=== PATIENT | male | born 1980 | race Two or more races ===

== ENCOUNTER 2017-12-16 22:55 | Emergency (ER) | payer OTHER ==
[~2017-12-16] VITALS: Ht 180.3 cm; Wt 122.5 kg
[2017-12-17] MEDS ORDERED: HYDROcodone-ACET 10/325MG TAB PO ONE ×2 (01:15→07:45)
[2017-12-17] MEDS ORDERED: PROMETHAZINE HCL 25 MG/ML 1ML IV ONE ×2 (09:00→12:30)
[2017-12-17] MEDS ORDERED: MORPHINE SULFATE 4 MG/ML SYR/VIAL IV ONE ×2 (09:00→12:30)
[2017-12-17 10:36] LABS: Albumin 1.7 g/dL (3.4-5.0); BUN/Creatinine Ratio 8.8; Bilirubin, Total 0.2 mg/dL (0.2-1.0); Calcium 6.3 mg/dL (8.5-10.1); Magnesium 1.7 mg/dL (1.6-2.6); Potassium 4.3 mmol/L (3.5-5.1); Total Protein 6.3 g/dL (6.4-8.2)
[2017-12-17] MEDS ORDERED: IODIXANOL 320MG/ML 100ML BTL IV ONE (10:49)
[2017-12-17 10:51] LABS: Basophils # (auto) 0.1 uL; Basophils % (auto) 0.6 % (0.0-2.0); Eosinophils # (auto) 0.1 uL; Hemoglobin 7.2 g/dL (13.5-17.5); Monocytes # (auto) 0.7 uL
[2017-12-17 10:53] LABS: Eosinophils % (auto) 0.6 % (0.0-7.0); Hematocrit 21.8 % (41.0-53.0); Lymphocytes # (auto) 1.6 uL; Lymphocytes % (auto) 14.8 % (10.0-50.0); Mean Corpuscular Hgb Conc. 32.8 g/dL (32.0-36.0); Mean Corpuscular Volume 82.4 fL (80.0-100.0); Monocytes % (auto) 6.8 % (0.0-12.0); Neutrophils # (auto) 8.4 uL; Neutrophils % (auto) 77.2 % (37.0-80.0); Platelet Count (auto) 222 10^3/uL (140-450); Red Blood Cells 2.65 10^6/uL (4.5-5.90); Red Cell Distribution Width 14.9 % (11.8-14.3); White Blood Cell 10.9 10^3/uL (4.4-10.8)
[2017-12-17] MEDS ORDERED: TETANUS-DIPTH-ACEL PERTUSSIS 0.5ML SYRG IM ONE (12:30)
[2017-12-17 14:17] VITALS: BP 118/67
== END 2017-12-17 14:30 | disposition short-term general hospital (02) ==
LOC: EDBD 22:55 → ER 22:55
DX: S22.43XA Multiple fractures of ribs, bilateral, initial encounter for closed fracture (principal); S00.03XA Contusion of scalp, initial encounter; S20.212A Contusion of left front wall of thorax, initial encounter; S39.81XA Other specified injuries of abdomen, initial encounter; S30.1XXA Contusion of abdominal wall, initial encounter; S70.02XA Contusion of left hip, initial encounter; E66.01 Morbid (severe) obesity due to excess calories; K85.90 Acute pancreatitis without necrosis or infection, unspecified; E11.65 Type 2 diabetes mellitus with hyperglycemia; D64.9 Anemia, unspecified; K80.20 Calculus of gallbladder without cholecystitis without obstruction; Z68.37 Body mass index [BMI] 37.0-37.9, adult; V43.52XA Car driver injured in collision with other type car in traffic accident, initial encounter; Y93.89 Activity, other specified; Y99.8 Other external cause status; Y92.410 Unspecified street and highway as the place of occurrence of the external cause
CPT/HCPCS: 36415; 71045; 71250; 72125; 73502; 73560; 74176; 74177; 80053; 82962; 83690; 83735; 84520; 85025; 96374; 96375; 96376; 99285; J2270; J2550; Q9967; 93005